=== PATIENT | female | born 1990 | race Caucasian/White ===

== ENCOUNTER 2017-04-03 05:06 | Inpatient (IN) | payer OTHER ==
[2017-04-03 05:39] LABS: HEMOGLOBIN 12.1 gm/dl (12.3-15.3); RED BLOOD COUNT 3.86 M/UL (4.00-5.10)
[2017-04-04 05:08] LABS: HEMOGLOBIN 8.7 gm/dl (12.3-15.3)
[2017-04-05] MEDS ORDERED: COLACE 100MG C100 MG PO (12:12)
== END 2017-04-05 12:16 | disposition home or self-care (01) | DRG 766 ==
LOC: GENOP 05:06 → OB 05:58
PROVIDERS: Obstetrics & Gynecology; ADMIT Obstetrics & Gynecology
PROC: 10D00Z1 Extraction of Products of Conception, Low, Open Approach (ICD-10-PCS; principal; 2017-04-03 05:52)
DX: O34.211 Maternal care for low transverse scar from previous cesarean delivery (principal); N85.8 Other specified noninflammatory disorders of uterus; Z3A.38 38 weeks gestation of pregnancy; Z37.0 Single live birth; O99.334 Smoking (tobacco) complicating childbirth
CPT/HCPCS: 36415; 36600; 81001; 82800; 85014; 85018; 85025; 90715; C9113; J0690; J2590; J2765; J3430; J7120

== ENCOUNTER 2021-10-11 05:28 | Inpatient (IN) | payer OTHER ==
[~2021-10-11] VITALS: Ht 152.4 cm; Wt 60.3 kg
[~2021-10-11 05:28] MED LIST: COLACE 100MG C100 MG PO
[2021-10-11 05:54] LABS: HEMOGLOBIN 11.9 gm/dl (12.3-15.3); RED BLOOD COUNT 3.68 M/UL (4.00-5.10); WHITE BLOOD COUNT 11.1 K/UL (4.5-11.0)
[2021-10-11] MEDS ORDERED: PRENATABS RX T1 EACH PO (06:15)
[2021-10-11] MEDS ORDERED: BUPRENORPHIN-N1 EACH SL (06:18)
[2021-10-11] MEDS ORDERED: IBUPROFEN600 MG PO (08:39)
[2021-10-11] MEDS ORDERED: HYDROCODON-ACE1 EAC6 PO (08:39)
[2021-10-11] MEDS ORDERED: COLACE 100MG C100 MG PO (08:39)
[2021-10-12 05:21] LABS: HEMOGLOBIN 10.2 gm/dl (12.3-15.3)
== END 2021-10-14 09:00 | disposition home or self-care (01) | DRG 787 ==
LOC: OB 05:28
PROVIDERS: ADMIT Obstetrics & Gynecology
PROC: 4A1HXCZ Monitoring of Products of Conception, Cardiac Rate, External Approach (ICD-10-PCS; 2021-10-11)
PROC: 10D00Z1 Extraction of Products of Conception, Low, Open Approach (ICD-10-PCS; principal; 2021-10-11 09:00)
DX: O99.324 Drug use complicating childbirth (principal); F11.20 Opioid dependence, uncomplicated; O36.5930 Maternal care for other known or suspected poor fetal growth, third trimester, not applicable or unspecified; Z20.822 Contact with and (suspected) exposure to COVID-19; Z3A.37 37 weeks gestation of pregnancy; Z37.0 Single live birth; Z28.310 Unvaccinated for COVID-19; O99.334 Smoking (tobacco) complicating childbirth; F17.210 Nicotine dependence, cigarettes, uncomplicated; Z81.8 Family history of other mental and behavioral disorders; Z82.49 Family history of ischemic heart disease and other diseases of the circulatory system; Z83.3 Family history of diabetes mellitus; O99.62 Diseases of the digestive system complicating childbirth; K66.0 Peritoneal adhesions (postprocedural) (postinfection)
CPT/HCPCS: 36415; 80307; 81001; 82800; 85014; 85018; 85025; C9113; J0690; J1885; J2250; J2274; J2370; J2405; J2590; J3010; J7120